=== PATIENT | female | born 2000 | race African-American/Black ===

== ENCOUNTER 2024-06-13 19:37 | Emergency (ER) | payer OTHER ==
[~2024-06-13 19:37] MED LIST: Iopamidol-370 76% 500 ML MDV (1 ML CHARGE) ONE
[2024-06-13] MEDS ORDERED: Dexamethasone 10 MG/ML VIAL ONE (20:16)
[2024-06-13] MEDS ORDERED: Ketorolac Tromethamine 30 MG (1 mL) VIAL ONE (20:16)
[2024-06-13] MEDS ORDERED: cefTRIAXone (ROCEPHIN) 1 GM VIAL ONE (20:16)
[2024-06-13] MEDS ORDERED: Sodium Chloride 0.9% 100 ML ONE (20:17)
[2024-06-13] MEDS ORDERED: Famotidine/PF 20 mg/2ml Vial ONE (20:20)
[2024-06-13 20:31] LABS: #Basophils 0.06 10x3/uL (0.0-0.2); %Basophils 0.4 % (0.0-1.0); %Eosinophils 0.6 % (0.0-10.0); %Lymphocytes 11.8 % (21.0-51.0); %Monocytes 8.5 % (0.0-10.0); %Neutrophils 78.3 % (42.0-75.0); Hematocrit 40.9 % (36.0-47.0); Hemoglobin 14.1 g/dL (12.0-16.0); Mean Corpuscular HGB CONC 34.5 g/dL (32.0-36.0); Mean Corpuscular Hemoglobin 30.7 pg (27.0-31.0); Mean Corpuscular Volume 88.9 fL (78.0-98.0); Platelet Count 242 10x3/uL (130-400)
[2024-06-13 20:57] LABS: ALT (SGPT) 18 U/L (8-55); AST (SGOT) 18 U/L (5-34); Albumin 3.7 g/dL (3.5-5.0); Alkaline Phosphatase 57 U/L (40-110); Anion Gap 12 mmol/L (10-20); BUN (Urea Nitrogen) 27 mg/dL (7.0-18.7); Bilirubin, Total 0.7 mg/dL (0.2-1.2); Calc. Creatinine Clearance 0 mL/min (70-130); Calcium 8.9 mg/dL (7.8-10.44); Carbon Dioxide 22 mmol/L (22-29); Chloride 109 mmol/L (98-107); Estimated GFR 43; Globulin 3.5 g/dL (2.4-3.5); Glucose 84 mg/dL (70-105); Potassium 4.4 mmol/L (3.5-5.1); Protein, Total 7.2 g/dL (6.0-8.3); Sodium 139 mmol/L (136-145)
== END 2024-06-13 21:55 | disposition home or self-care (01) ==
LOC: ERS 19:37
DX: J02.9 Acute pharyngitis, unspecified (principal); R10.30 Lower abdominal pain, unspecified; N17.9 Acute kidney failure, unspecified
CPT/HCPCS: 36415; 74177; 80053; 85025; 87081; 87430; 96365; 96375; J0696; J1100; J1885; J3490; Q9967

== ENCOUNTER 2024-06-16 16:21 | Inpatient (IN) | payer OTHER ==
[2024-06-16] MEDS ORDERED: traMADol HCl 50 MG TAB ONE ×2 (16:39→16:41)
[2024-06-16 16:54] LABS: #Basophils 0.07 10x3/uL (0.0-0.2); %Basophils 0.7 % (0.0-1.0); %Eosinophils 1.6 % (0.0-10.0); %Lymphocytes 34.8 % (21.0-51.0); %Monocytes 10.1 % (0.0-10.0); %Neutrophils 52.5 % (42.0-75.0); Hematocrit 40.1 % (36.0-47.0); Hemoglobin 13.8 g/dL (12.0-16.0); Mean Corpuscular HGB CONC 34.4 g/dL (32.0-36.0); Mean Corpuscular Hemoglobin 30.3 pg (27.0-31.0); Mean Corpuscular Volume 87.9 fL (78.0-98.0); Mean Platelet Volume 9.3 fL (7.4-10.4); Platelet Count 238 10x3/uL (130-400); RBC Distribution Width 12.3 % (11.5-14.5); Red Blood Cell (RBC) Count 4.56 mill/uL (4.20-5.40)
[2024-06-16 17:07] LABS: BHCG - Serum Negative (NEGATIVE); Pregs Control Background? CLEAR/WHITE (CLR/WHITE); Pregs Control Bar Appear? YES (CONTROL BAR)
[2024-06-16 17:14] LABS: ALT (SGPT) 17 U/L (8-55); AST (SGOT) 14 U/L (5-34); Albumin 3.6 g/dL (3.5-5.0); Alkaline Phosphatase 48 U/L (40-110); Anion Gap 15 mmol/L (10-20); BUN (Urea Nitrogen) 37 mg/dL (7.0-18.7); Bilirubin, Total 0.3 mg/dL (0.2-1.2); CK (CPK) 59 U/L (29-168); Calc. Creatinine Clearance 0 mL/min (70-130); Calcium 8.6 mg/dL (7.8-10.44); Carbon Dioxide 20 mmol/L (22-29); Chloride 109 mmol/L (98-107); Estimated GFR 21; Globulin 3.3 g/dL (2.4-3.5); Glucose 77 mg/dL (70-105); Potassium 4.2 mmol/L (3.5-5.1); Protein, Total 6.9 g/dL (6.0-8.3); Sodium 140 mmol/L (136-145)
[2024-06-16 17:20] LABS: Troponin I Less than 0.010 ng/mL (< 0.028)
[2024-06-16 17:25] LABS: Bacteria/HPF None Seen HPF (None Seen); Bilirubin Negative (Negative); Blood, Urine Negative (Negative); CAUTI Indications for Culture Dysuria,urgency,freq; Clarity Clear (Clear); Glucose, Urine (Dipstick) Normal (Negative); Ketone, Urine Negative (Negative); Leukocyte Negative Leu/uL (Negative); Nitrite Negative (Negative); Protein, Urine (Dipstick) 20 mg/dL (Neg-Trace); RBC/HPF None Seen HPF (0-3); Specific Gravity, Urine 1.001 (1.002-1.036); Squamous Epithelial 0-3 HPF (0-3); Urobilinogen Normal mg/dL (Less than 2); WBC/HPF 0-3 HPF (0-3); pH, Urine 6.5 (5.0-9.0)
[2024-06-16 17:28] LABS: Urine Culture Reflex No No
[2024-06-16 18:13] LABS: MONO NEGATIVE CONTROL ZONE White (Negative) (White); MONO POSITIVE CONTROL Pink Line (Positive) (PINK/RED); Mononucleosis NEGATIVE (NEGATIVE)
[2024-06-16] MEDS ORDERED: Acetaminophen 650 MG Suppository PR PRN (18:43)
[2024-06-16] MEDS ORDERED: Morphine 2 MG/ML VIAL ONE (18:49)
[2024-06-16] MEDS ORDERED: GUAIFENESIN SF SOLN 200 MG/10 ML UDCUP PO PRN (20:13)
[2024-06-16] MEDS ORDERED: Benzocaine/Menthol 1 LOZ LOZ PO PRN (20:13)
[2024-06-16 20:55] VITALS: BMI 48.5
[2024-06-16] MEDS: HYDROcodone/Acetaminophen 5/325 mg Tablet PO PRN (21:20)
[2024-06-16] MEDS: Famotidine 20 MG TAB PO SCH (21:21)
[2024-06-16] MEDS: Lactated Ringer's 1,000 ML IV SCH (21:23)
[2024-06-16] MEDS ORDERED: Morphine 2 MG/ML VIAL SLOW IVP PRN (21:56)
[2024-06-17 05:36] LABS: #Basophils 0.06 10x3/uL (0.0-0.2); %Basophils 0.6 % (0.0-1.0); %Eosinophils 1.9 % (0.0-10.0); %Lymphocytes 27.2 % (21.0-51.0); %Monocytes 11.2 % (0.0-10.0); %Neutrophils 58.7 % (42.0-75.0); Hematocrit 37.2 % (36.0-47.0); Hemoglobin 12.7 g/dL (12.0-16.0); Mean Corpuscular HGB CONC 34.1 g/dL (32.0-36.0); Mean Corpuscular Volume 90.7 fL (78.0-98.0); Mean Platelet Volume 9.3 fL (7.4-10.4); Platelet Count 202 10x3/uL (130-400); RBC Distribution Width 12.3 % (11.5-14.5)
[2024-06-17 05:56] LABS: Anion Gap 13 mmol/L (10-20); BUN (Urea Nitrogen) 34 mg/dL (7.0-18.7); Calc. Creatinine Clearance 65 mL/min (70-130); Carbon Dioxide 18 mmol/L (22-29); Chloride 112 mmol/L (98-107); Estimated GFR 22; Glucose 88 mg/dL (70-105); Potassium 4.1 mmol/L (3.5-5.1); Sodium 139 mmol/L (136-145)
[2024-06-17] MEDS: Docusate 100 MG CAP PO SCH ×2 (10:59→20:07)
[2024-06-17 11:57] LABS: Influenza A by NAA Not Detected (NotDetected); Influenza B by NAA Not Detected (NotDetected); SARS-CoV-2 NAA Rapid Test Not Detected (NotDetected)
[2024-06-17] MEDS: Sodium Chloride 0.9% 1,000 ML IV SCH (12:40)
[2024-06-17 13:37] LABS: Bacteria/HPF None Seen HPF (None Seen); Bilirubin Negative (Negative); Blood, Urine Negative (Negative); Clarity Clear (Clear); Glucose, Urine (Dipstick) Normal (Negative); Ketone, Urine Negative (Negative); Leukocyte Negative Leu/uL (Negative); Nitrite Negative (Negative); Protein, Urine (Dipstick) Negative (Neg-Trace); RBC/HPF 0-3 HPF (0-3); Squamous Epithelial 0-3 HPF (0-3); Urobilinogen Normal mg/dL (Less than 2); WBC/HPF 0-3 HPF (0-3); pH, Urine 6.5 (5.0-9.0)
[2024-06-17 13:58] LABS: Creatinine, Urine 30.84 mg/dL (47-110)
[2024-06-17 16:24] VITALS: BMI 48.5
[2024-06-17] MEDS: Methocarbamol 500 MG TAB PO SCH (20:07)
[2024-06-17] MEDS: Ondansetron ODT 4 MG TAB PO PRN (23:01)
[2024-06-18] MEDS: Acetaminophen 325 MG TAB PO PRN (02:42)
[2024-06-18 05:15] LABS: Anion Gap 12 mmol/L (10-20); BUN (Urea Nitrogen) 33 mg/dL (7.0-18.7); Calc. Creatinine Clearance 68 mL/min (70-130); Calcium 8.3 mg/dL (7.8-10.44); Carbon Dioxide 20 mmol/L (22-29); Chloride 111 mmol/L (98-107); Estimated GFR 24; Glucose 84 mg/dL (70-105); Potassium 4.6 mmol/L (3.5-5.1); Sodium 138 mmol/L (136-145)
[2024-06-18 05:19] LABS: #Basophils 0.05 10x3/uL (0.0-0.2); %Basophils 0.5 % (0.0-1.0); %Eosinophils 3.4 % (0.0-10.0); %Lymphocytes 32.9 % (21.0-51.0); %Monocytes 11.3 % (0.0-10.0); %Neutrophils 51.7 % (42.0-75.0); Hematocrit 38.4 % (36.0-47.0); Hemoglobin 12.8 g/dL (12.0-16.0); Mean Corpuscular HGB CONC 33.3 g/dL (32.0-36.0); Mean Corpuscular Hemoglobin 29.8 pg (27.0-31.0); Mean Corpuscular Volume 89.5 fL (78.0-98.0); Mean Platelet Volume 9.6 fL (7.4-10.4); Platelet Count 250 10x3/uL (130-400); RBC Distribution Width 12.2 % (11.5-14.5); Red Blood Cell (RBC) Count 4.29 mill/uL (4.20-5.40)
[2024-06-18] MEDS: Sodium Chloride 0.9% 1,000 ML IV SCH (08:04)
[2024-06-18] MEDS: Topiramate 100 MG TAB PO SCH ×2 (15:38→20:12)
[2024-06-19 05:56] LABS: #Basophils 0.06 10x3/uL (0.0-0.2); %Basophils 0.7 % (0.0-1.0); %Eosinophils 4.3 % (0.0-10.0); %Lymphocytes 35.4 % (21.0-51.0); %Monocytes 10.5 % (0.0-10.0); %Neutrophils 48.8 % (42.0-75.0); Hematocrit 37.8 % (36.0-47.0); Hemoglobin 12.9 g/dL (12.0-16.0); Mean Corpuscular HGB CONC 34.1 g/dL (32.0-36.0); Mean Corpuscular Hemoglobin 29.9 pg (27.0-31.0); Mean Corpuscular Volume 87.7 fL (78.0-98.0); Mean Platelet Volume 9.2 fL (7.4-10.4); Platelet Count 280 10x3/uL (130-400); RBC Distribution Width 11.9 % (11.5-14.5); Red Blood Cell (RBC) Count 4.31 mill/uL (4.20-5.40)
[2024-06-19 06:25] LABS: Anion Gap 14 mmol/L (10-20); BUN (Urea Nitrogen) 37 mg/dL (7.0-18.7); Calc. Creatinine Clearance 65 mL/min (70-130); Calcium 8.6 mg/dL (7.8-10.44); Carbon Dioxide 18 mmol/L (22-29); Chloride 111 mmol/L (98-107); Estimated GFR 23; Glucose 86 mg/dL (70-105); Potassium 4.5 mmol/L (3.5-5.1); Sodium 138 mmol/L (136-145)
[2024-06-19] MEDS: Ondansetron PF 4 MG/2 ML Vial IVP PRN (13:23)
[2024-06-19 13:57] LABS: ANA Symphony (Qualitative) Negative (Negative); ANA Symphony (Quantitative) Less than 0.1 Ratio (< 0.7 Negative); dsDNA IgG Antibody 2.3 IU/mL (<10 Negative)
[2024-06-19 14:23] LABS: Cardiac Risk 3.4 (Less than 4.5)
[2024-06-19 14:48] LABS: Creatinine, Urine 20.17 mg/dL (47-110); Microalbumin Urine 2.6 mg/dL (0.5-50.0); Microalbumin/Creat Ratio 128.9 mg/g (Less than 30); Protein, Urine Random Quant Less than 10 mg/dL (1-14)
[2024-06-19] MEDS ORDERED: Fleet Saline Enema 133 ML BOT PR SCH (20:00)
[2024-06-20 06:36] LABS: Anion Gap 15 mmol/L (10-20); BUN (Urea Nitrogen) 33 mg/dL (7.0-18.7); CK (CPK) 31 U/L (29-168); Calc. Creatinine Clearance 78 mL/min (70-130); Calcium 9.2 mg/dL (7.8-10.44); Carbon Dioxide 18 mmol/L (22-29); Chloride 113 mmol/L (98-107); Estimated GFR 28; Glucose 80 mg/dL (70-105); Potassium 4.7 mmol/L (3.5-5.1); Sodium 141 mmol/L (136-145)
[2024-06-20] MEDS: Bisacodyl 5 MG TAB PO PRN (17:30)
[2024-06-20 19:58] VITALS: BP 128/87; TEMP 98.1
[2024-06-20] MEDS: Senokot S 8.6-50 MG TAB PO SCH (20:08)
== END 2024-06-21 12:47 | disposition home or self-care (01) | DRG 683 ==
LOC: ERS 16:21 → EEVIPCON 16:21 → T4-A 18:50 → OBSVTOIN 06-18 08:06
PROVIDERS: ADMIT Internal Medicine; ATTEND Student in an Organized Health Care Education/Training Program
DX: N17.9 Acute kidney failure, unspecified (principal); E87.20 Acidosis, unspecified; Z68.42 Body mass index [BMI] 45.0-49.9, adult; J02.9 Acute pharyngitis, unspecified; G43.909 Migraine, unspecified, not intractable, without status migrainosus; Z88.1 Allergy status to other antibiotic agents; Z98.890 Other specified postprocedural states; Z79.899 Other long term (current) drug therapy; N18.30 Chronic kidney disease, stage 3 unspecified; E66.01 Morbid (severe) obesity due to excess calories; K59.00 Constipation, unspecified
CPT/HCPCS: 36415; 72148; 76770; 80048; 80053; 80061; 81001; 82043; 82550; 82570; 84156; 84484; 84703; 85025; 86038; 86225; 86308; 87086; 93005; 96374; J2272; J2405; J7030; J7120; Q0162